=== PATIENT | male | born 1950 | race Caucasian/White ===

== ENCOUNTER → 2019-06-02 | Day surgery (SDC) | payer MEDICARE, BC ==
[~2019-06-02] MED LIST: Acetaminophen TAB* 325 MG PO PRN; Diazepam TAB(*) 5 MG ONE; Heparin 2 UNITS/ML IVPREMIX* 4,000 UNIT/2,000 ML BAG IV ONE; Iohexol 350 (CONTRAST) 200 ML MDV IV ONE; Lidocaine 1% INJ* 10 MG/ML 30 ML SDV ONE; Midazolam* 1 MG/ML 5 ML VIAL (5 MG) ONE; NS 0.9% 1000 ML** 1,000 ML IV SCH; fentaNYL* 50 MCG/ML 2 ML VIAL (100 MCG VIAL) ONE
[2019-06-02 13:36] VITALS: BP 127/75
--- NOTE | 2019-06-02 20:36 | CATH ---
CC: Dr. Maya Kurtz * CARDIAC CATHETERIZATION REPORT: DATE OF PROCEDURE: 06/02/19 - [facility] CATH PROCEDURE: Cardiac catheterization with left heart catheterization, central aortogram, coronary angiography. PREP-OP DIAGNOSES: 1. Aortic stenosis. 2. Ascending aorta aneurysm. INDICATION FOR PROCEDURE: The patient is a 69-year-old gentleman with a history of aortic stenosis. His most recent echocardiogram showed severe aortic stenosis with a mean gradient of 30 mmHg. He also was noted to have a dilated ascending aorta at 5.4 cm. The patient has been experiencing shortness of breath with exertion. Cardiac catheterization was recommended in preparation for aortic valve replacement surgery. DESCRIPTION OF PROCEDURE: The patient was brought to the procedure room in a fasting state. Informed consent had been obtained prior to the procedure. All labs were reviewed. The patient was placed supine on the procedure table. His femoral areas were prepped and draped in usual fashion. 1% lidocaine was used for local anesthesia. The right femoral artery was entered by a Seldinger technique and a guidewire was placed. Over the guidewire, a 6-Iranian sheath introducer was placed. The patient underwent coronary angiography using a 6- Iranian JL6 catheter and a 6-Iranian JR4 catheter, a 6-Iranian pigtail catheter was used. Attempts were made to cross the aortic valve. A wire was able to be crossed into the left ventricle, but the pigtail catheter could not be threaded into the left ventricle because of severe calcification. An ascending aortogram was done. At the end of the procedure, an angiogram of the femoral artery demonstrated normal position and a Mynx closure device was deployed. The patient tolerated procedure well with no complications. A total of 100 cc of Omnipaque dye was used. A total of 10 minutes of fluoro time was used. FINDINGS: HEMODYNAMIC: Central aortic blood pressure of 124/65 with a mean of 89. ASCENDING AORTOGRAM: The aorta is significantly dilated. It is 6.2 cm at the sinus of Valsalva, 5.4 cm at the ascending aorta. There is heavy calcification of the aortic valve with restricted motion. Left ventriculogram was not done as the pigtail catheter could not be threaded across the calcified aortic valve. CORONARY ARTERIES: 1. Left main. Left main was normal in size. It bifurcated into the LAD and circumflex. There is no evidence of stenosis. 2. Left anterior descending artery: The LAD was normal in size. It gave off 3 diagonal vessels. The proximal portion of the LAD is heavily calcified. There is approximately 40% stenosis of the mid LAD between first and second diagonals. The remainder of the vessels was without disease. 3. Left circumflex artery: The left circumflex artery was normal in size. It gave off 3 obtuse marginal branches. There is no evidence of stenosis. 4. Right coronary artery: The RCA is a large dominant vessel. It gave off the PDA. There is heavy calcification throughout the right coronary artery. There is an eccentric 60% stenosis to the distal right coronary artery. There is posterolateral branches without disease. The posterior descending artery off the right coronary artery was calcified. There is a 90% stenosis in the mid -vessel. The distal vessel is appropriate for bypass. IMPRESSION: 1. Heavily calcified aortic valve with restricted opening. 2. Significantly dilated ascending aorta measuring 6.2 cm at the sinus of Valsalva and 5.4 cm at the ascending aorta. 3. Heavy calcification of the left anterior descending with a 40% stenosis in the proximal vessel. 4. No significant disease to the left circumflex artery. 5. Heavy calcification of the entire right coronary artery with a 60% stenosis in the distal right coronary artery and a 90% stenosis in the proximal posterior descending artery. 6. Mynx closure device. RECOMMENDATION: The patient will be evaluated for aortic valve replacement and ascending aorta repair and bypass to the right coronary artery. [id number] #: [id number]
== END | disposition home or self-care (01) ==
LOC: CHICATH 07:37
PROVIDERS: ATTEND Specialist
DX: I35.0 Nonrheumatic aortic (valve) stenosis (principal); I25.10 Atherosclerotic heart disease of native coronary artery without angina pectoris; I25.84 Coronary atherosclerosis due to calcified coronary lesion; I71.2 Thoracic aortic aneurysm, without rupture; R06.02 Shortness of breath; Z88.0 Allergy status to penicillin; Z87.891 Personal history of nicotine dependence
CPT/HCPCS: 93454; 99156; 99157; A9270-GY; C1760; C1769; C1887; J1644; J2250; J3010